=== PATIENT | male | born 1990 | race Caucasian/White ===

== ENCOUNTER 2019-06-21 16:39 | Emergency (ER) | payer SELFPAY ==
[2019-06-21 16:47] VITALS: BP 130/72; PULSE 75; TEMP 98.2; BMI 31.1
--- NOTE | 2019-06-21 17:11 | PDOC ---
Rapid Medical Evaluation Chief Complaint: Pain, Acute Medical Evaluation: Allergies Allergy/AdvReac Type Severity Reaction Status Date / Time No Known Allergies Allergy Verified 06/21/19 16:47 Vital Signs Temp Pulse Resp BP Pulse Ox 98.2 F 75 19 130/72 100 06/21/19 16:46 06/21/19 16:46 06/21/19 16:46 06/21/19 16:46 06/21/19 16:46 06/21/19 17:08 This patient had a brief in-person evaluation in triage cc: flank pain x today HPI: NAD even and unlabored breathing +cva tenderness on left side orders: labs This patient will proceed to ED for further evaluation. Discharge Disposition - Diagnosis Flank pain - Referrals - Patient Instructions - Post Discharge Activity
[2019-06-21] MEDS ORDERED: KETOROLAC TROMETHAMINE 30 MG/1 ML VIAL IM ONE (17:13)
[2019-06-21 18:05] LABS: BASO % 0.2 % (0-2.0); EOS % 1.5 % (0-4.5); HEMATOCRIT 38.4 % (35.4-49); HEMOGLOBIN 12.5 GM/dL (11.7-16.9); LYMPH % 19.6 % (8-40); MCH 26.8 pg (25.7-33.7); MCHC 32.5 g/dl (32.0-35.9); MEAN CELL VOLUME 82.5 fl (80-96); MEAN PLT VOLUME 7.8 fl (7.5-11.1); MONO % 4.6 % (3.8-10.2); NEUT % 74.1 % (42.8-82.8); PLATELET COUNT 307 K/MM3 (134-434); RBC 4.65 M/mm3 (4.00-5.60); RDW 14.7 % (11.9-15.9); WHITE BLOOD COUNT 13.2 K/mm3 (4.0-10.0)
--- NOTE | 2019-06-21 18:07 | PDOC ---
History of Present Illness - General Chief Complaint: Pain, Acute Stated Complaint: FLANK PAIN, HEMATURIA Time Seen by Provider: 06/21/19 18:04 - History of Present Illness Initial Comments: 06/21/19 18:06 29 yo M with no significant pmh who p/w left flank pain. Patient reports acute, crampy, unremitting, left flank pain beginning at 11 AM today, at rest. No identifiable triggers or alleviators. Patient unable to set still, find uncomfortable position. + dysuria today. Denies h/o renal stones. Denies home medication use. Patient denies CHANDLER, vision change, palpitations, cough, wheezing, orthopena, PND , leg swelling/pain, N/V, F,C, CP, SOB, hematuria, BPR, abdominal pain, diarrhea, constipation, lightheadedness, weakness, sensory changes. PMHx: as noted above. Denies abdominal surgery. ROS: as noted SHx: Denies Etoh, IVDA, tobacco use Allergies: NKDA Past History - Past Medical History Allergies/Adverse Reactions: Allergies Allergy/AdvReac Type Severity Reaction Status Date / Time No Known Allergies Allergy Verified 06/21/19 16:47 Home Medications: Ambulatory Orders NK [No Known Home Medication] 06/21/19 COPD: No - Suicide/Smoking/Psychosocial Hx Smoking History: Never smoked Information on smoking cessation initiated: No Hx Alcohol Use: No Drug/Substance Use Hx: No Review of Systems - Review of Systems Comments:: 06/21/19 18:06 GENERAL/CONSTITUTIONAL: No fever or chills. No weakness. HEAD, EYES, EARS, NOSE AND THROAT: No change in vision. No ear pain or discharge. No sore throat. CARDIOVASCULAR: No chest pain or shortness of breath RESPIRATORY: No cough, wheezing, or hemoptysis. GASTROINTESTINAL: No nausea, vomiting, diarrhea or constipation. GENITOURINARY: + Left flank pain and dysuria. No frequency, or change in urination. MUSCULOSKELETAL: No joint or muscle swelling or pain. No neck or back pain. SKIN: No rash NEUROLOGIC: No headache, vertigo, loss of consciousness, or change in strength/ sensation. ENDOCRINE: No increased thirst. No abnormal weight change HEMATOLOGIC/LYMPHATIC: No anemia, easy bleeding, or history of blood clots. ALLERGIC/IMMUNOLOGIC: No hives or skin allergy. *Physical Exam - Vital Signs Last Vital Signs Temp Pulse Resp BP Pulse Ox 98.2 F 75 19 130/72 100 06/21/19 16:46 06/21/19 16:46 06/21/19 16:46 06/21/19 16:46 06/21/19 16:46 - Physical Exam Comments: 06/21/19 18:07 GENERAL: Awake, alert, and fully oriented, in no acute distress HEAD: No signs of trauma, normocephalic, atraumatic EYES: PERRLA, EOMI, sclera anicteric, conjunctiva clear ENT: Auricles normal inspection, hearing grossly normal, nares patent, oropharynx clear without exudates. Moist mucosa NECK: Normal ROM, supple, no lymphadenopathy, JVD, or masses LUNGS: No distress, speaks full sentences, clear to auscultation bilaterally HEART: Regular rate and rhythm, normal S1 and S2, no murmurs, rubs or gallops, peripheral pulses normal and equal bilaterally. ABDOMEN: Soft, nontender, normoactive bowel sounds. No guarding, no rebound. No masses EXTREMITIES : Normal inspection, Normal range of motion, no edema. No clubbing or cyanosis. NEUROLOGICAL: Cranial nerves II through XII grossly intact. Normal speech, normal gait, no focal sensorimotor deficits SKIN: Warm, Dry, normal turgor, no rashes or lesions noted ED Treatment Course - LABORATORY CBC & Chemistry Diagram: 06/21/19 17:54 06/21/19 17:54 Medical Decision Making - Medical Decision Making 06/21/19 18:07 29 yo M with no significant pmh who p/w left flank pain. Vitals wnl, AF, A&Ox3. Physical exam unremarkable. + Renal colicky left flank pain. Likely 2/2 nephrolithiasis Will evaluate for obstructive uropathy, urinary tract infection. Provide analgesic control, reassess. Ed course: CT AP 06/21/19 18:40 Laboratory Tests 06/21/19 06/21/19 17:54 17:54 WBC 13.2 H Hgb 12.5 Hct 38.4 Plt Count 307 Sodium 142 Potassium 4.1 BUN 17.7 Creatinine 1.2 Est GFR (CKD-EPI)NonAf 80.09 Random Glucose 153 H Patient pending CTAP, UA Pain slightly improved following 30 mg Toradol IM. Percocet given Endorsed to night team Dr. Frazier. *DC/Admit/Observation/Transfer Diagnosis at time of Disposition: Flank pain, Left flank pain - Discharge Dispostion Condition at time of disposition: Stable Decision to Admit order: No - Referrals - Patient Instructions Printed Discharge Instructions: DI for Flank Pain Additional Instructions: Please return to the emergency department with any new or worsening symptoms or concerns. Please follow up with your primary care physician within 72 hours. - Post Discharge Activity
[2019-06-21] MEDS ORDERED: KETOROLAC TROMETHAMINE 30 MG/1 ML VIAL ONE (18:09)
[2019-06-21 18:35] LABS: ALBUMIN 3.7 g/dl (3.4-5.0); BILIRUBIN,TOTAL 0.3 mg/dL (0.2-1); BLOOD UREA NITROGEN 17.7 mg/dL (7-18); CALCIUM 8.6 mg/dL (8.5-10.1); CREATININE 1.2 mg/dL (0.55-1.3); POTASSIUM 4.1 mmol/L (3.5-5.1); TOT PROT 7.4 g/dl (6.4-8.2)
--- NOTE | 2019-06-21 18:38 | PDOC ---
Documentation entered by Mari Parekh SCRIBE, acting as scribe for Ernestina Nails MD. Ernestina Nails MD: This documentation has been prepared by the Iglesia barrera Xhesika, SCRIBE, under my direction and personally reviewed by me in its entirety. I confirm that the documentation accurately reflects all work, treatment, procedures, and medical decision making performed by me. Attending Attestation - Resident Resident Name: Bernabe Hannon - ED Attending Attestation I have performed the following: I have examined & evaluated the patient, The case was reviewed & discussed with the resident, I agree w/resident's findings & plan, Exceptions are as noted - HPI HPI: 06/21/19 18:17 The patient is a 29 year old male with no significant PMH of who presents to the emergency department with L flank pain since 11AM. Patient states he endorses dysuria, however, denies hematuria. Patient denies any previous history of kidney stones. The patient denies chest pain, shortness of breath, headache and dizziness. Denies fever, chills, cough, nausea, vomiting, diarrhea and constipation. Denies frequency, urgency and hematuria. Allergies: NKDA - Physicial Exam PE: GENERAL: Awake, alert, and fully oriented. Appears uncomfortable HEAD: No signs of trauma EYES: PERRLA, EOMI, sclera anicteric, conjunctiva clear ENT: Auricles normal inspection, hearing grossly normal, nares patent, oropharynx clear without exudates. Moist mucosa NECK: Normal ROM, supple, no lymphadenopathy, JVD, or masses LUNGS: Breath sounds equal, clear to auscultation bilaterally. No wheezes, and no crackles HEART: Regular rate and rhythm, normal S1 and S2, no murmurs, rubs or gallops ABDOMEN: Soft, nontender, normoactive bowel sounds. No guarding, no rebound. No masses. +L CVAT EXTREMITIES: Normal range of motion, no edema. No clubbing or cyanosis. No cords, erythema, or tenderness NEUROLOGICAL: Cranial nerves II through XII grossly intact. Normal speech, normal gait. Motor and sensation intact SKIN: Warm, dry, normal turgor, no rashes or lesions noted. - Medical Decision Making Symptoms suspicious for kidney stone. Will obtain UA, spiral CT. Pain control with NSAID, will escalate to opioid if toradol is not sufficient.
[2019-06-21 21:15] LABS: EPI CELLS 1.2 /HPF (0-5/HPF); HYALINE CASTS 5 /lpf (0-8); URINE APPEARANCE CLOUDY; URINE BACTERIA 9.8 /hpf (NEGATIVE); URINE BILIRUBIN NEGATIVE (NEGATIVE); URINE COLOR YELLOW; URINE GLUCOSE (UA) NEGATIVE (NEGATIVE); URINE KETONE TRACE (NEGATIVE); URINE LEUK ESTERASE NEGATIVE (NEGATIVE); URINE NITRITE NEGATIVE (NEGATIVE); URINE PROTEIN NEGATIVE (NEGATIVE); URINE RBC 59 /hpf (0-4); URINE UROBILINOGEN 0.2 mg/dL (0.2-1.0); URINE WBC 2 /hpf (0-5)
--- NOTE | 2019-06-21 21:33 | PDOC ---
*Physical Exam - Vital Signs Last Vital Signs Temp Pulse Resp BP Pulse Ox 98.2 F 75 19 130/72 100 06/21/19 16:46 06/21/19 16:46 06/21/19 16:46 06/21/19 16:46 06/21/19 16:46 ED Treatment Course - LABORATORY CBC & Chemistry Diagram: 06/21/19 17:54 06/21/19 17:54 - ADDITIONAL ORDERS Additional order review: Laboratory Results 06/21/19 06/21/19 06/21/19 20:53 17:54 17:54 Sodium 142 Potassium 4.1 Chloride 109 H Carbon Dioxide 27 Anion Gap 5 L BUN 17.7 Creatinine 1.2 Est GFR (CKD-EPI)AfAm 92.83 Est GFR (CKD-EPI)NonAf 80.09 Random Glucose 153 H Calcium 8.6 Total Bilirubin 0.3 AST 43 H ALT 79 H Alkaline Phosphatase 96 Total Protein 7.4 Albumin 3.7 Urine Color Yellow Cancelled Urine Appearance Cloudy Cancelled Urine pH 6.0 Cancelled Ur Specific [place] 1.024 Cancelled Urine Protein Negative Cancelled Urine Glucose (UA) Negative Cancelled Urine Ketones Trace H Cancelled Urine Blood 3+ H Cancelled Urine Nitrite Negative Cancelled Urine Bilirubin Negative Cancelled Urine Urobilinogen 0.2 Cancelled Ur Leukocyte Esterase Negative Cancelled Urine WBC (Auto) 2 Cancelled Urine RBC (Auto) 59 Cancelled Urine Casts (Auto) 5 Cancelled U Pathogenic Cast Auto Cancelled U Epithel Cells (Auto) 1.2 Cancelled U Sm Round Cell (Auto) Cancelled Urine Crystals (Auto) Cancelled Urine Bacteria (Auto) 9.8 Cancelled Urine Yeast (Auto) Cancelled 06/21/19 17:54 RBC 4.65 MCV 82.5 MCHC 32.5 RDW 14.7 MPV 7.8 Neutrophils % 74.1 Lymphocytes % 19.6 Monocytes % 4.6 Eosinophils % 1.5 Basophils % 0.2 - Medications Given in the ED: ED Medications Discontinued Medications Generic Name Dose Route Start Last Admin Trade Name Freq PRN Reason Stop Dose Admin Ketorolac Tromethamine 30 mg 06/21/19 17:13 06/21/19 18:09 Toradol Injection - IM 06/21/19 17:14 30 mg ONCE ONE Administration Oxycodone/Acetaminophen 2 combo 06/21/19 18:40 06/21/19 18:58 Percocet 5/325 - PO 06/21/19 18:41 2 combo ONCE ONE Administration Medical Decision Making - Medical Decision Making 06/21/19 21:23 Patient signed out to me pending UA and final CT read. 3mm stone at left UVJ with labs roughly WNL and clean UA. Will DC with ibuprofen and zofran. *DC/Admit/Observation/Transfer Diagnosis at time of Disposition: Flank pain, Left flank pain - Discharge Dispostion Disposition: HOME Condition at time of disposition: Improved Decision to Admit order: No - Prescriptions Prescriptions: Ibuprofen 600 mg PO TID PRN 5 Days #20 tablet PRN Reason: pain Ondansetron [Zofran *Odt*] 4 mg SL BID #14 od.tablet - Referrals Referrals: Andrea Garcia MD [Staff Physician] - - Patient Instructions Printed Discharge Instructions: DI for Flank Pain, Kidney Stones -- Adult, DI for Kidney Stones Additional Instructions: Tiene un clculo renal en el lado aye que chris quinn desaparecido. Use el ibuprofeno si tiene mucho dolor. Puedes usarlo hasta remigio veces al da. Tambin le estamos dando medicamentos para las nuseas que puede usar dos veces al da segn sea necesario. Cada vez que orines, haz pis en el colador. Abdullahi un seguimiento con el urlogo esta semana. Regrese al departamento de emergencias con cualquier sntoma o inquietud nueva o que empeore. Abdullahi un seguimiento con pace mdico de atencin primaria dentro de las 72 horas. Print Language: [place] - Post Discharge Activity
== END 2019-06-21 22:22 | disposition home or self-care (01) ==
LOC: JER 16:39
PROC: 3E0233Z Introduction of Anti-inflammatory into Muscle, Percutaneous Approach (ICD-10-PCS; principal; 2019-06-21)
DX: N20.0 Calculus of kidney (principal)
CPT/HCPCS: 36415; 74176-TC; 80053; 81003; 85025; 87086; 99284-25